=== PATIENT | female | born 1985 | race Caucasian/White ===

== ENCOUNTER 2017-11-07 06:00 | Inpatient (IN) | payer OTHER ==
[2017-11-07] MEDS ORDERED: OXYTOCIN 30 UNIT in NS 500 ML IV SCH (07:00)
[2017-11-07 08:03] LABS: PLATELET COUNT 197 10^3/uL (150-400)
--- NOTE | 2017-11-07 09:49 | PDGENHP ---
History and Physical History and Physical: CARE: [facility] HPI: Patient is a 32 yo G 2H1963 that presents to L&D for IOL. She denies any regular contractions, LOF, VB. She reports +FM. She had Turk bulb placed 11/06 at approximately 1700. At time of arrival pt notified us that turk bulb had fallen out around 0500. EDC: 11/06/2017 which is based on LMP: 01/30/2017 which is known and consistent with Ultrasound at 6 weeks. 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) Review of Systems: Constitutional: Denies any fever, chills, or fatigue HEENT: denies any visual changes, difficulty swallowing, hearing loss Cardiovascular: Denies any chest pain, palpitations, leg swelling Respiratory: denies any cough, wheezing, or shortness of breathe GI: Denies any nausea, vomiting, diarrhea, constipation : denies any dysuria, urgency, frequency, vaginal bleeding Musculoskeletal: denies any muscle or bone pain Skin: denies any rashes Neuro: denies any headache, seizures, lightheadedness, dizziness, or loss of consciousness Psychiatric: denies any depression, anxiety, or SI/HI thoughts HISTORY: Previous OB history: 2015, 7#3, SAB x4 Past medical history: + PPD, negative chest x-ray Past surgical history: LEEP, oral surgery Medications: PNV, iron Allergies (list reaction): NKDA LABS: Rh: A+ ABS: Neg Rubella: Immune HbsAg: NR HIV: NR RPR: NR 1hr: NL GC: Neg Chlamydia: Neg Pap: Normal GBS: Neg PHYSICAL EXAM: Constitutional: WN, A&Ox3 HEENT: normocephalic atraumatic, supple Heart: RRR, no murmur Chest: CTA-B Abdomen: Soft, nontender, gravid SVE: 2/50/-2 (from 11/06/17 @ 1700) Extremities: no edema, negative homans sign Neuro: grossly normal Psych: normal affect assessment: Reassuring FHTs, baseline 145+accels, no decels, moderate variability Contractions: toco irregular Assessment: 1) [id number] with IUP@ 40-1wks 2) IOL 3) GBS negative 4) Cat 1 FHR tracing Plan: 1) Admit to L&D 2) start low dose pitocin 3) cont EFM 4) reassess 2hr/PRN 5) AROM once in good contraction pattern 6) anticipate
[2017-11-07] MEDS ORDERED: LIDOCAINE 1% 300 MG/30 ML SDV ONE (11:23)
[2017-11-07] MEDS ORDERED: OLIVE OIL 118 ML BTL ONE (11:23)
[2017-11-07] MEDS ORDERED: TERBUTALINE SULFATE 1 MG/ML VIAL ONE (11:24)
[2017-11-07] MEDS ORDERED: MISOPROSTOL 200 MCG TAB ONE (11:24)
[2017-11-07] MEDS ORDERED: AMMONIA AROMATIC 1 EACH AMP IH ONE (11:24)
[2017-11-07] MEDS ORDERED: OXYTOCIN 10 UNIT/ML VIAL ONE (11:24)
--- NOTE | 2017-11-07 12:59 | OBPROG ---
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 She is ambulating. FOB @ BS, supportive. Objective: 11/07/17 07:47 Patient ABO/Rh A POSITIVE 11/07/17 07:47 - SVE Dilation (cm): 5 Effacement (%): 50 Station: -2 Membranes: AROM Amniotic Fluid Color: Meconium Stained - Contraction Pattern Assessment Current Contraction Pattern: Regular - FHR Assessment Shah FHR (bpm): 145 FHR Pattern Variability: Moderate FHR Category: 1 - Procedures Non-surgical Procedures: Amniotomy - AP Antepartum Course: 11/07/17 12:58 routine care with BWC/CNM, normal labs, habitual aborted- on ASA daily, gbs negative 11/07/17 13:00 Oxytocin Orders Assessment - Pre-Induction/Augmentation Assessment Gestational Age: 40 week(s) and 1 day(s) ICD10 Worksheet Patient Problems: Problems Problem Status Onset Encounter for induction of labor Acute Thin meconium stained amniotic fluid Acute Labor and delivery complicated by meconium in amniotic fluid Acute (normal spontaneous vaginal delivery) Acute - ICD10 Problem Qualifiers (1) Thin meconium stained amniotic fluid (2) Encounter for induction of labor
--- NOTE | 2017-11-07 16:19 | OBPROG ---
Labor Progress Note Assessment/Plan: Assessment: [id number] with IUP@40-1wks GBS Neg cat 1 FHR Tracing AROM- MSF Plan: cont pitocin augmentation, will increase up to 30mU encouraged ambulation reassess 2hr/PRN 11/07/17 12:56 11/07/17 16:18 Subjective/Intrapartum Course: 11/07/17 12:57 pt doing well, denies pain with contractions. She is ambulating. FOB @ BS, supportive. 11/07/17 16:19 Pt doing well, denies any pain. She is feeling contractions, but states they are mild. Objective: 11/07/17 07:47 Patient ABO/Rh A POSITIVE 11/07/17 07:47 - SVE Dilation (cm): 5 Effacement (%): 50 Station: -2 Membranes: AROM Amniotic Fluid Color: Meconium Stained - Contraction Pattern Assessment Current Contraction Pattern: Regular - Procedures Non-surgical Procedures: Amniotomy - AP Antepartum Course: 11/07/17 12:58 routine care with BWC/CNM, normal labs, habitual aborted- on ASA daily, gbs negative 11/07/17 13:00 Oxytocin Orders Assessment - Pre-Induction/Augmentation Assessment Gestational Age: 40 week(s) and 1 day(s) ICD10 Worksheet Patient Problems: Problems Problem Status Onset Encounter for induction of labor Acute Thin meconium stained amniotic fluid Acute Labor and delivery complicated by meconium in amniotic fluid Acute (normal spontaneous vaginal delivery) Acute - ICD10 Problem Qualifiers (1) Thin meconium stained amniotic fluid (2) Encounter for induction of labor
--- NOTE | 2017-11-07 19:14 | OBPROG ---
Labor Progress Note Assessment/Plan: Assessment: [id number] with IUP@40-1wks GBS Neg cat 1 FHR Tracing AROM- MSF Plan: cont pitocin augmentation, maintain at 24mU encouraged ambulation reassess 2hr/PRN 11/07/17 12:56 11/07/17 16:18 11/07/17 19:12 Subjective/Intrapartum Course: 11/07/17 12:57 pt doing well, denies pain with contractions. She is ambulating. FOB @ BS, supportive. 11/07/17 16:19 Pt doing well, denies any pain. She is feeling contractions, but states they are mild. 11/07/17 19:12 Pt doing well, she is breathing through each contraction. She is feeling intermittent rectal pressure. She denies any urge to push. She declines IUPC at this time. FOB @ BS supportive. Objective: 11/07/17 07:47 Patient ABO/Rh A POSITIVE 11/07/17 07:47 - SVE Dilation (cm): 6 Effacement (%): 50 (70) Station: -1 Membranes: AROM Amniotic Fluid Color: Meconium Stained - Contraction Pattern Assessment Current Contraction Pattern: Regular - FHR Assessment Shah FHR (bpm): 145 FHR Pattern Variability: Moderate FHR Category: 1 - Procedures Non-surgical Procedures: Amniotomy - AP Antepartum Course: 11/07/17 12:58 routine care with BWC/CNM, normal labs, habitual aborted- on ASA daily, gbs negative 11/07/17 13:00 Oxytocin Orders Assessment - Pre-Induction/Augmentation Assessment Gestational Age: 40 week(s) and 1 day(s) ICD10 Worksheet Patient Problems: Problems Problem Status Onset Encounter for induction of labor Acute Thin meconium stained amniotic fluid Acute Labor and delivery complicated by meconium in amniotic fluid Acute (normal spontaneous vaginal delivery) Acute - ICD10 Problem Qualifiers (1) Thin meconium stained amniotic fluid (2) Encounter for induction of labor
[2017-11-07] MEDS ORDERED: PHENYLEPHRINE HCL 100 MCG/ML SYR ONE (22:09)
[2017-11-07] MEDS ORDERED: BUPIVACAINE 0.25% 30 ML SDV ONE ×2 (22:09→22:44)
[2017-11-07] MEDS ORDERED: fentaNYL 2MCG/ML/BUP 0.1% RTU 100 ML BAG EP ONE (22:09)
[2017-11-07] MEDS ORDERED: fentaNYL 100 MCG/2 ML INJ ONE ×2 (22:10→22:44)
--- NOTE | 2017-11-07 23:10 | POSTANESTH ---
Post Anesthetic Evaluation Cardiovascular Status: Normal, Stable Respiratory Status: Normal, Stable Level of Consciousness/Mental Status: Can Participate in Eval, Moderately Sleepy Pain Control: Inadeq, Add Tx Required (Patient still feeling pain on left side with delivery imminent and no time to replace epidural catheter. Left sided pain improved somewhat as delivery proceded.) Nausea/Vomiting Control: Adequate, Prn Tx Ordered Complications Possibly Related to Anesthesia: None Noted
[2017-11-07] MEDS ORDERED: PHENYLEPHRINE HCL 100 MCG/ML SYR IVP PRN (23:11)
[2017-11-07] MEDS ORDERED: ONDANSETRON 4 MG/2 ML VIAL IVP PRN (23:11)
--- NOTE | 2017-11-07 23:24 | PREANESOB ---
Obstetric Pre-Anesthesia Info - General Info Proposed Procedure: Labor and delivery with pitocin. : 6 Para: 1 IFRAH: 11/06/17 Gestational Age: 40 week(s) and 1 day(s) - Info Status: Full Term Monitors: External FHR Baseline (bpm): 150 FHR Pattern: Reassuring - Labor Status Cervical Dilation per last OB SVE: 7 Station per last OB SVE: -1 Amniotic Fluid Color: Meconium Stained Pitocin: In Use Indications for Labor Analgesia: Induction of Labor, Pain Control Labor Epidural: Proposed Anesthesia ROS: Prior labor and delivery with pitocin and no anesthesia. Allergies/Adverse Reactions: Allergy/AdvReac Type Severity Reaction Status Date / Time No Known Allergies Allergy Unverified 01/21/15 12:54 Home Medications: Medication Instructions Recorded CALCIUM 1 tab PO DAILY 01/21/15 Dha 1 tab PO DAILY 01/21/15 1 tab PO DAILY 01/21/15 Ibuprofen [Motrin (*)] 600 mg PO Q4-6PRN PRN #1 tab 01/23/15 Visit Medications: Generic Name Dose Route Start Last Admin Trade Name Freq PRN Reason Stop Dose Admin Diphenhydramine HCl 25 - 50 mg 11/07/17 23:11 Benadryl Injection IVP 05/06/18 23:10 Q6HRS PRN Itching Oxytocin 30 unit/ Sodium 503 mls @ 0 mls/hr 11/07/17 07:00 11/07/17 08:05 Chloride IV 05/06/18 06:59 503 mls CONT MARTHA Administration Per Protocol Lactated Ringer's 500 mls @ 0 mls/hr 11/07/17 23:30 Lr IV 05/06/18 23:29 CONT MARTHA As Directed Ondansetron HCl 4 mg 11/07/17 23:11 Zofran IVP 11/08/17 23:10 Q4HRS PRN Nausea/Vomiting, Can't Take PO Phenylephrine HCl 100 mcg 11/07/17 23:11 Neosynephrine IVP 05/06/18 23:10 .Q2M PRN Hypotension Discontinued Medications Generic Name Dose Route Start Last Admin Trade Name Freq PRN Reason Stop Dose Admin Ammonia (Aromatic Spirit) Confirm 11/07/17 11:24 Ammonia Aromatic Administered 11/07/17 11:25 Dose 1 each IH .STK-MED ONE Bupivacaine HCl Confirm 11/07/17 22:09 Sensorcaine 0.25% Sdv Administered 11/07/17 22:10 Dose 30 ml .ROUTE .STK-MED ONE Bupivacaine HCl Confirm 11/07/17 22:44 Sensorcaine 0.25% Sdv Administered 11/07/17 22:45 Dose 30 ml .ROUTE .STK-MED ONE Fentanyl Confirm 11/07/17 22:10 Sublimaze Administered 11/07/17 22:11 Dose 100 mcg .ROUTE .STK-MED ONE Fentanyl Confirm 11/07/17 22:44 Sublimaze Administered 11/07/17 22:45 Dose 100 mcg .ROUTE .STK-MED ONE Fentanyl/Bupivacaine HCl Confirm 11/07/17 22:09 Fentanyl/Bupivacaine/Ns 2 Mcg/Ml 0.1% (Premix Administered 11/07/17 22:10 Dose 100 ml EP .STK-MED ONE Lidocaine HCl Confirm 11/07/17 11:23 Lidocaine Hcl 1% Administered 11/07/17 11:24 Dose 300 mg .ROUTE .STK-MED ONE Misoprostol Confirm 11/07/17 11:24 Cytotec Administered 11/07/17 11:25 Dose 1,000 mcg .ROUTE .STK-MED ONE Devon Oil Confirm 11/07/17 11:23 Sweet Oil Administered 11/07/17 11:24 Dose 118 ml .ROUTE .STK-MED ONE Oxytocin Confirm 11/07/17 11:24 Pitocin Administered 11/07/17 11:25 Dose 40 unit .ROUTE .STK-MED ONE Phenylephrine HCl Confirm 11/07/17 22:09 Neosynephrine Administered 11/07/17 22:10 Dose 1,000 mcg .ROUTE .STK-MED ONE Terbutaline Sulfate Confirm 11/07/17 11:24 Brethine Administered 11/07/17 11:25 Dose 1 mg .ROUTE .STK-MED ONE - Anesthesia History Response to Local Anesthetics: Normal Family Anesthesia History: Not Applicable - Social History Substance Use/Abuse: Denies - Vital Signs Blood Pressure: 144/69 Heart Rate: 84 Height/Weight (Nursing): Height 167.64 cm Weight 88.451 kg - Focused Exam Neck exam: FROM Mouth exam: normal dental/mouth exam Pulmonary: no respiratory distress Cardiovascular: regular rate and rhythym Labs: 11/07/17 07:47 Patient ABO/Rh A POSITIVE 11/07/17 07:47 - Plan Consent Signed and on Chart: Yes Patient/Guardian Understands and Agrees to Plan: Yes Urgent/Emergent Case: Violeta ruvalcaba completed preop but documented later for safe timely pt care
[2017-11-07] MEDS ORDERED: LR 500 ML IV SCH (23:30)
[2017-11-07] MEDS ORDERED: HYDROCODONE/APAP 5/325 TAB PO PRN (23:35)
[2017-11-07] MEDS ORDERED: HYDROCORTISONE 0.5% CREAM TP PRN (23:35)
[2017-11-07] MEDS ORDERED: SIMETHICONE 80 MG TAB CHEW PO PRN (23:35)
--- NOTE | 2017-11-07 23:39 | OBDEL ---
Info Type: Vaginal Presentation at Delivery: Vertex L&D Analgesia/Anesthesia Type: Epidural GBS+: No Intrapartum Medications: Generic Name Dose Route Start Last Admin Trade Name Rebecca PRN Reason Stop Dose Admin Oxytocin 30 unit/ Sodium 503 mls @ 0 mls/hr 11/07/17 07:00 11/07/17 08:05 Chloride IV 05/06/18 06:59 503 mls CONT MARTHA Administration Per Protocol - Hospital Course Intrapartum: 11/07/17 12:57 pt doing well, denies pain with contractions. She is ambulating. FOB @ BS, supportive. 11/07/17 16:19 Pt doing well, denies any pain. She is feeling contractions, but states they are mild. 11/07/17 19:12 Pt doing well, she is breathing through each contraction. She is feeling intermittent rectal pressure. She denies any urge to push. She declines IUPC at this time. FOB @ BS supportive. Indications for Delivery: Elective Vaginal Delivery - Delivery Provider Delivery Physician/CNM: Shelby Waller - Labor and Delivery Onset of Contractions Date: 11/07/17 Onset of Contractions Time: 17:30 Onset of Contractions Type: Induced Rupture of Membranes Date: 11/07/17 Rupture of Membranes Time: 12:46 Rupture of Membranes Type: Artificial Amniotic Fluid Color: Meconium Stained Dilation Complete Date: 11/07/17 Dilation Complete Time: 22:46 Placenta Delivery Date: 11/07/17 Placenta Delivery Time: 23:09 Total Hours of Labor: 5 Non-surgical Procedures: Amniotomy Vaginal Sponge Count Correct: Yes Vaginal Needle Count Correct: Yes Vaginal Sweep Performed: Yes EBL: 200 Delivery Events: Nuchal Cord Delivery Comment: labored unmedicated, requested CATHI @ 8cm, complete after sitting up for CATHI. pushed x3 contractions. nuchal x2, around body. dad helped catch - Medications Labor Augmentation/Induction Methods Used: Pitocin, Sorenson Bulb Labor Augmentation/Induction Indication: Elective [place] Data IFRAH: 11/06/17 Gestational Age: 40 week(s) and 1 day(s) Shah Delivery Date: 11/07/17 Delivery Time: 23:01 Sex of Infant: Male Score (1 Min): 8 Score (5 Min): 8 ICD10 Worksheet Patient Problems: Problems Problem Status Onset Double nuchal cord Acute Encounter for induction of labor Acute Thin meconium stained amniotic fluid Acute Labor and delivery complicated by meconium in amniotic fluid Acute (normal spontaneous vaginal delivery) Acute - ICD10 Problem Qualifiers (1) Thin meconium stained amniotic fluid (2) Encounter for induction of labor (3) Double nuchal cord Qualifiers: Fetus number: single or unspecified fetus Qualified Code(s): O69.1XX0 - Labor and delivery complicated by cord around neck, with compression, not applicable or unspecified
[2017-11-08] MEDS ORDERED: OLIVE OIL 118 ML BTL MISC PRN (00:07)
[2017-11-08] MEDS ORDERED: TERBUTALINE SULFATE 1 MG/ML VIAL IV PRN (00:07)
[2017-11-08] MEDS ORDERED: EPSOM SALT 454 GM TP PRN (00:07)
[2017-11-08] MEDS ORDERED: OXYTOCIN 20 UNIT in LR 1,000 ML IV PRN (00:07)
[2017-11-08] MEDS ORDERED: LR 1,000 ML IV PRN (00:07)
[2017-11-08] MEDS: IBUPROFEN 600 MG TAB PO PRN ×2 (00:28→11:44)
[2017-11-08] MEDS: DOCUSATE SODIUM 100 MG CAP PO PRN (09:25)
--- NOTE | 2017-11-08 11:06 | OBPP ---
Progress Note Assessment/Plan: Assessment: PPD 1 s/p mild anemia Plan: routine care, iron daily 11/08/17 11:04 Subjective/ Course: 11/08/17 11:05 Pt doing well. baby has latched well. mod cramps. using ibu for cramps. bleeding has been mod but slowing today. urinating fine. Objective: 11/07/17 07:47 Patient ABO/Rh A POSITIVE 11/07/17 07:47 Temp Pulse Resp BP Pulse Ox 36.9 C 90 14 94/59 L 95 11/08/17 01:52 11/08/17 01:52 11/08/17 01:52 11/08/17 01:52 11/08/17 01:52 Uterine Position/Fundal Height: Umbilicus -2 Uterine Tone: Firm Physical Exam - Physical Exam Abdomen: non-tender, soft, other (normal lochia) Extremities: non-tender, pedal edema (none) Skin: normal color, warm/dry Neuro/Psych: alert, normal mood/affect
[2017-11-08 11:15] VITALS: RESP 16
[2017-11-09 08:45] VITALS: BP 103/72; PULSE 62; TEMP 97.7; O2SAT 96
[2017-11-09] MEDS: DOCUSATE SODIUM 100 MG CAP PO PRN (08:55)
[2017-11-09] MEDS ORDERED: IRON POLYSAC/IRON HEME 28 MG TAB PO SCH (09:00)
--- NOTE | 2017-11-09 11:35 | OBPP ---
Progress Note Assessment/Plan: Assessment: 1) s/p PPD # 2 - pt is stable 2) Anemia - pt is asymptomatic Plan: Plan for d/c home today after baby is circumcised Instructions reviewed with pt No Rx given Cont PNV and iron, colace Pelvic rest RTC in 4 and 6 weeks for pp check 11/09/17 11:36 Subjective/ Course: 11/08/17 11:05 Pt doing well. baby has latched well. mod cramps. using ibu for cramps. bleeding has been mod but slowing today. urinating fine. 11/09/17 11:37 Pt seen and examined. Doing well with no complaints. Mild cramping, relief with Motrin. Mod lochia. She is OOB without dizziness, rocio reg diet, voiding and BM x1. BF without difficulty. Objective: 11/07/17 07:47 Patient ABO/Rh A POSITIVE 11/07/17 07:47 Temp Pulse Resp BP Pulse Ox 36.5 C 62 16 103/72 96 11/09/17 08:44 11/09/17 08:44 11/09/17 08:44 11/09/17 08:44 11/09/17 08:44 Uterine Position/Fundal Height: Umbilicus -2 Uterine Tone: Firm Physical Exam - Physical Exam Respiratory: lungs clear, normal breath sounds Cardiac/Chest: regular rate, rhythm Abdomen: normal bowel sounds, non-tender, soft, flatus (+) Extremities: non-tender, normal inspection Skin: normal color, warm/dry Neuro/Psych: alert, normal mood/affect, oriented x 3
--- NOTE | 2017-11-09 11:39 | OBGCSDC ---
General Delivery Information - General Info : 6 Para: 2 Abortions: 4 Type: Vaginal L&D Analgesia/Anesthesia Type: Epidural Admission Date: 11/07/17 Labs: Patient ABO/Rh A POSITIVE 11/07/17 07:47 Hct 34.6 % (38.0-47.0) L 11/07/17 07:47 - Hospital Course Antepartum: 11/07/17 12:58 routine care with BWC/CNM, normal labs, habitual aborted- on ASA daily, gbs negative 11/07/17 13:00 Intrapartum: 11/07/17 12:57 pt doing well, denies pain with contractions. She is ambulating. FOB @ BS, supportive. 11/07/17 16:19 Pt doing well, denies any pain. She is feeling contractions, but states they are mild. 11/07/17 19:12 Pt doing well, she is breathing through each contraction. She is feeling intermittent rectal pressure. She denies any urge to push. She declines IUPC at this time. FOB @ BS supportive. : 11/08/17 11:05 Pt doing well. baby has latched well. mod cramps. using ibu for cramps. bleeding has been mod but slowing today. urinating fine. 11/09/17 11:37 Pt seen and examined. Doing well with no complaints. Mild cramping, relief with Motrin. Mod lochia. She is OOB without dizziness, rocio reg diet, voiding and BM x1. BF without difficulty. Vaginal - Delivery Provider Delivery Physician/CNM: Shelby Waller - Diagnosis Labor: Induced Rupture of Membranes Type: Artificial Amniotic Fluid Color: Meconium Stained Delivery Events: Nuchal Cord - Procedures Non-surgical Procedures: Amniotomy - Delivery Non-surgical Procedures: Amniotomy EBL: 200 [place] Data IFRAH: 11/06/17 Gestational Age: 40 week(s) and 3 day(s) Shah Delivery Date: 11/07/17 Delivery Time: 23:01 Sex of : Male Score (1 Min): 8 Score (5 Min): 8 Discharge Information - Discharge Information Condition: Good Instruction/Follow Up: Four Weeks, Six Weeks
== END 2017-11-09 14:30 | disposition home or self-care (01) | DRG 775 ==
LOC: FLD 06:02 → FOB 11-08 01:57
PROVIDERS: ADMIT Obstetrics & Gynecology; ATTEND Obstetrics & Gynecology
DX: O48.0 Post-term pregnancy (principal); O77.0 Labor and delivery complicated by meconium in amniotic fluid; O69.82X0 Labor and delivery complicated by other cord entanglement, without compression, not applicable or unspecified; O90.81 Anemia of the puerperium; Z3A.40 40 weeks gestation of pregnancy; Z37.0 Single live birth
CPT/HCPCS: J2370; J3010; J3105